=== PATIENT | male | born 1965 | race Caucasian/White ===

== ENCOUNTER 2017-05-21 08:23 | Emergency (ER) | payer OTHER ==
[2017-05-21 08:39] VITALS: BP 157/98; PULSE 72; RESP 18; TEMP 97.5; O2SAT 100
[2017-05-21] MEDS ORDERED: KETOROLAC TROMETHAMINE 30 MG/ML SOL IM ONE ×2 (08:46→10:28)
[2017-05-21] MEDS ORDERED: KETOROLAC TROMETHAMINE 30 MG/ML SOL ONE (08:51)
[2017-05-21 09:05] LABS: BASOPHILS % (AUTO) 0 % (0-3); EOSINOPHILS % (AUTO) 1 % (0-9); HEMATOCRIT 44 % (39-53); MEAN CORPUSCULAR HGB CONC 34.4 gm/dl (32.0-36.0); MEAN CORPUSCULAR VOLUME 87 fL (80-100); MONOCYTES % (AUTO) 9.7 % (0-12); NEUTROPHILS % (AUTO) 73.4 % (37-80)
[2017-05-21 09:19] LABS: ALBUMIN 3.3 gm/dl (3.4-5.0); CALCIUM 8.1 mg/dl (8.5-10.1); POTASSIUM 3.9 mMol/L (3.5-5.1)
[2017-05-21] MEDS ORDERED: CYCLOBENZAPRINE 10 MG TAB PO ONE (09:35)
[2017-05-21] MEDS ORDERED: CYCLOBENZAPRINE 10 MG TAB ONE (09:36)
== END 2017-05-21 10:51 | disposition home or self-care (01) | DRG 74 ==
LOC: ED 08:23
DX: G58.8 Other specified mononeuropathies (principal); M62.838 Other muscle spasm; Z87.898 Personal history of other specified conditions
CPT/HCPCS: 72125; 72128; 80053; 85025; 99284; J1885